=== PATIENT | female | born 1970 | race Caucasian/White ===

== ENCOUNTER 2017-01-04 17:50 | Emergency (ER) | payer MEDICAID ==
[~2017-01-04] VITALS: Ht 167.6 cm; Wt 60.0 kg
[2017-01-04 18:01] VITALS: BP 135/85
== END 2017-01-04 21:38 | disposition left against medical advice (07) ==
LOC: EMS 17:51
DX: M54.9 Dorsalgia, unspecified (principal); Z53.21 Procedure and treatment not carried out due to patient leaving prior to being seen by health care provider

== ENCOUNTER 2017-07-21 16:11 | Emergency (ER) | payer MEDICAID ==
[~2017-07-21] VITALS: Ht 170.2 cm; Wt 63.5 kg
[2017-07-21] MEDS ORDERED: IBUPROFEN 600 MG TABLET PO ONE (17:15)
[2017-07-21 17:43] VITALS: BP 114/89
== END 2017-07-21 18:24 | disposition home or self-care (01) ==
LOC: EMS 16:13
DX: G44.209 Tension-type headache, unspecified, not intractable (principal)
CPT/HCPCS: 99282

== ENCOUNTER 2018-06-20 22:01 | Emergency (ER) | payer MEDICAID ==
[~2018-06-20] VITALS: Ht 170.2 cm; Wt 63.6 kg
[2018-06-21 01:36] VITALS: BP 126/76
== END 2018-06-21 01:44 | disposition home or self-care (01) ==
LOC: EMS 22:02
DX: S09.90XA Unspecified injury of head, initial encounter (principal); F17.210 Nicotine dependence, cigarettes, uncomplicated; W22.09XA Striking against other stationary object, initial encounter; Y93.89 Activity, other specified; Y92.89 Other specified places as the place of occurrence of the external cause; Y99.8 Other external cause status
CPT/HCPCS: 99281

== ENCOUNTER 2018-06-23 15:27 | Emergency (ER) | payer MEDICAID ==
[~2018-06-23] VITALS: Ht 170.2 cm; Wt 63.6 kg
[2018-06-23 16:02] VITALS: BP 101/78
[2018-06-23] MEDS ORDERED: PredniSONE 20 MG TABLET PO ONE (16:15)
[2018-06-23] MEDS ORDERED: IBUPROFEN 800 MG TABLET PO ONE (16:15)
== END 2018-06-23 16:27 | disposition home or self-care (01) ==
LOC: EMS 15:32
DX: S60.862A Insect bite (nonvenomous) of left wrist, initial encounter (principal); L03.114 Cellulitis of left upper limb; F17.210 Nicotine dependence, cigarettes, uncomplicated; Z98.51 Tubal ligation status; W57.XXXA Bitten or stung by nonvenomous insect and other nonvenomous arthropods, initial encounter; Y93.89 Activity, other specified; Y92.89 Other specified places as the place of occurrence of the external cause; Y99.8 Other external cause status
CPT/HCPCS: 99283; J7512

== ENCOUNTER 2018-06-25 20:13 | Emergency (ER) | payer MEDICAID ==
[~2018-06-25] VITALS: Ht 170.2 cm; Wt 63.6 kg
[2018-06-25] MEDS ORDERED: SULFAMETHOX/TRIMETH DS 800-160 MG/TABLET PO ONE (21:30)
[2018-06-25] MEDS ORDERED: KETOROLAC TROMETHAMINE 30 MG/ML VIAL IM ONE (21:30)
[2018-06-25] MEDS ORDERED: CEPHALEXIN MONOHYDRATE 500 MG CAPSULE PO ONE (21:30)
[2018-06-25 21:33] LABS: BASOPHILS % (AUTO) 1.3 % (0.0-2.0); HEMATOCRIT 30.5 % (36-46); HEMOGLOBIN 10.3 g/dL (12.0-16.0); LYMPHOCYTES # (AUTO) 1.8 K/uL (1.0-4.8); LYMPHOCYTES % (AUTO) 19.4 % (22.0-44.0); MEAN CORPUSCULAR HEMOGLOBIN 28.7 pg (26.0-34.0); MEAN CORPUSCULAR HGB CONC 33.9 G/dL (31.0-37.0); MEAN CORPUSCULAR VOLUME 85 fL (80-100); MONOCYTES # (AUTO) 0.9 K/uL (0.1-1.0); MONOCYTES % (AUTO) 9.1 % (2.0-9.0); NEUTROPHILS # (AUTO) 6.5 K/uL (1.8-7.7); NEUTROPHILS % (AUTO) 69.2 % (40.0-70.0); PLATELET COUNT (AUTO) 383 K/uL (150-450); RED CELL DISTRIBUTION WIDTH 14.1 % (11.5-14.5)
[2018-06-25 21:43] LABS: ANION GAP 6 mmol/L (8-16); CALCIUM, TOTAL 8.6 mg/dL (8.8-10.5); CARBON DIOXIDE 29 mmol/L (22-29); CHLORIDE 104 mmol/L (98-107); CREATININE 0.74 mg/dL (0.60-1.30); GLOMERULAR FILTR. RATE CALC > 60 mL/min (>60); GLUCOSE,RANDOM 101 mg/dL (70-110); POTASSIUM 3.7 mmol/L (3.5-5.1); SODIUM SERUM 139 mmol/L (136-145); UREA NITROGEN, BLOOD 19 mg/dL (7-18)
[2018-06-25] MEDS ORDERED: LIDOCAINE/PF 1% 5 ML VIAL INJ ONE (21:45)
[2018-06-25 22:07] VITALS: BP 118/76
[2018-06-26] MEDS ORDERED: ANTIBIOTIC PO (14:47)
== END 2018-06-25 22:30 | disposition home or self-care (01) ==
LOC: EMS 20:14
DX: L02.414 Cutaneous abscess of left upper limb (principal); L03.114 Cellulitis of left upper limb; F17.210 Nicotine dependence, cigarettes, uncomplicated; Z98.51 Tubal ligation status
CPT/HCPCS: 10060; 36415; 80048; 85025; 96372; 99284; 99406; J1885; J3490

== ENCOUNTER 2018-06-26 14:43 | Emergency (ER) | payer MEDICAID ==
[~2018-06-26] VITALS: Ht 170.2 cm; Wt 63.5 kg
[2018-06-26 14:45] VITALS: BP 106/64
[2018-06-26] MEDS ORDERED: ANTIBIOTIC PO (14:47)
[2018-06-26] MEDS ORDERED: SULFAMETHOX/TRIMETH DS 800-160 MG/TABLET PO ONE (15:30)
[2018-06-26] MEDS ORDERED: CEPHALEXIN MONOHYDRATE 500 MG CAPSULE PO ONE (15:30)
== END 2018-06-26 15:38 | disposition home or self-care (01) ==
LOC: EMS 14:44
DX: L02.414 Cutaneous abscess of left upper limb (principal); F17.210 Nicotine dependence, cigarettes, uncomplicated
CPT/HCPCS: 99283

== ENCOUNTER 2018-06-27 17:28 | Emergency (ER) | payer MEDICAID ==
[~2018-06-27] VITALS: Ht 170.2 cm; Wt 63.6 kg
[~2018-06-27 17:28] MED LIST: ANTIBIOTIC PO
[2018-06-27] MEDS ORDERED: IBUPROFEN 800 MG TABLET PO ONE (19:15)
[2018-06-27 19:23] VITALS: BP 110/79
== END 2018-06-27 19:24 | disposition home or self-care (01) ==
LOC: EMS 17:29
DX: L02.413 Cutaneous abscess of right upper limb (principal); F17.210 Nicotine dependence, cigarettes, uncomplicated; Z48.00 Encounter for change or removal of nonsurgical wound dressing; Z98.51 Tubal ligation status
CPT/HCPCS: 99283

== ENCOUNTER 2019-09-10 05:43 | Emergency (ER) | payer MEDICAID ==
[~2019-09-10] VITALS: Ht 170.2 cm; Wt 61.4 kg
[2019-09-10 05:48] VITALS: BP 104/79
== END 2019-09-10 08:16 | disposition left against medical advice (07) ==
LOC: EMS 05:43
DX: S60.361A Insect bite (nonvenomous) of right thumb, initial encounter (principal); Z53.21 Procedure and treatment not carried out due to patient leaving prior to being seen by health care provider; W57.XXXA Bitten or stung by nonvenomous insect and other nonvenomous arthropods, initial encounter; Y93.89 Activity, other specified; Y92.89 Other specified places as the place of occurrence of the external cause; Y99.8 Other external cause status

== ENCOUNTER 2020-04-08 19:25 | Emergency (ER) | payer SELFPAY ==
[~2020-04-08] VITALS: Ht 167.6 cm; Wt 65.9 kg
[2020-04-08 22:09] VITALS: BP 127/77
[2020-04-08] MEDS ORDERED: IBUPROFEN 600 MG TABLET PO ONE (23:30)
== END 2020-04-08 23:47 | disposition home or self-care (01) ==
LOC: EMS 19:25
DX: S92.122A Displaced fracture of body of left talus, initial encounter for closed fracture (principal); F17.210 Nicotine dependence, cigarettes, uncomplicated; V00.131A Fall from skateboard, initial encounter; Y93.51 Activity, roller skating (inline) and skateboarding; Y92.89 Other specified places as the place of occurrence of the external cause; Y99.8 Other external cause status
CPT/HCPCS: 99406

== ENCOUNTER 2020-12-06 21:43 | Emergency (ER) | payer MEDICAID, OTHER ==
[~2020-12-06] VITALS: Ht 165.1 cm; Wt 72.7 kg
[2020-12-06] MEDS ORDERED: ACETAMINOPHEN 500 MG TABLET PO ONE (23:15)
[2020-12-06] MEDS ORDERED: ASPIRIN 81 MG CHEWABLE TABLET PO ONE (23:15)
[2020-12-07] LABS: BASOPHILS % (AUTO) 1.5 % (0.0-2.0); EOSINOPHILS % (AUTO) 1.5 % (1.0-6.0); HEMATOCRIT 39.1 % (36-46); HEMOGLOBIN 12.5 g/dL (12.0-16.0); LYMPHOCYTES # (AUTO) 1.9 K/uL (1.0-4.8); LYMPHOCYTES % (AUTO) 42.7 % (22.0-44.0); MEAN CORPUSCULAR HEMOGLOBIN 27.9 pg (26.0-34.0); MEAN CORPUSCULAR HGB CONC 32.1 G/dL (31.0-37.0); MEAN CORPUSCULAR VOLUME 87 fL (80-100); MONOCYTES # (AUTO) 0.5 K/uL (0.1-1.0); NEUTROPHILS # (AUTO) 1.9 K/uL (1.8-7.7); NEUTROPHILS % (AUTO) 43.3 % (40.0-70.0); PLATELET COUNT (AUTO) 338 K/uL (150-450); RED BLOOD CELL COUNT(AUTO) 4.49 MIL/uL (4.00-5.20); RED CELL DISTRIBUTION WIDTH 15.3 % (11.5-14.5)
[2020-12-07 00:17] LABS: ANION GAP 9 mmol/L (8-16); CALCIUM, TOTAL 9.1 mg/dL (8.8-10.5); CARBON DIOXIDE 25 mmol/L (22-29); CHLORIDE 107 mmol/L (98-107); CREATININE 0.67 mg/dL (0.60-1.30); GLOMERULAR FILTR. RATE CALC > 60 mL/min (>60); GLUCOSE,RANDOM 90 mg/dL (70-110); POTASSIUM 4.2 mmol/L (3.5-5.1); SODIUM SERUM 141 mmol/L (136-145); UREA NITROGEN, BLOOD 24 mg/dL (7-18)
[2020-12-07 00:31] LABS: PROTHROMBIN TIME 10.9 SEC (9.4-11.6)
[2020-12-07 00:40] LABS: ALANINE AMINOTRANSFERASE 37 U/L (12-78); ALBUMIN 3.6 g/dL (3.4-5.0); ALKALINE PHOSPHATASE 87 U/L (46-116); ASPARTATE AMINOTRANSFERASE 31 U/L (15-37); BILIRUBIN,TOTAL 0.2 mg/dL (0.1-1.0); CREATINE KINASE, TOTAL ONLY 87 U/L (26-192); HCG,QUANTITATIVE 1 mIU/mL (0-6); TOTAL PROTEIN, SERUM 7.7 g/dL (6.4-8.2)
[2020-12-07 00:57] LABS: B-TYPE NATRIURETIC PEPTIDE 9 pg/mL (0-100)
[2020-12-07 01:10] VITALS: BP 117/77
== END 2020-12-07 01:26 | disposition home or self-care (01) ==
LOC: EMS 21:43
DX: R07.9 Chest pain, unspecified (principal); F17.210 Nicotine dependence, cigarettes, uncomplicated
CPT/HCPCS: 93005; 99285; 36415-L1; 36415-TC; 71045-TC

== ENCOUNTER 2021-03-23 14:06 | Emergency (ER) | payer OTHER ==
[~2021-03-23] VITALS: Ht 170.2 cm; Wt 63.6 kg
[2021-03-23 14:10] VITALS: BP 139/73
== END 2021-03-23 14:39 | disposition home or self-care (01) ==
LOC: EMS 14:08
DX: H00.011 Hordeolum externum right upper eyelid (principal)
CPT/HCPCS: 99283

== ENCOUNTER 2021-04-04 04:39 | Emergency (ER) | payer OTHER ==
[~2021-04-04] VITALS: Ht 170.2 cm; Wt 63.6 kg
[2021-04-04 07:00] VITALS: BP 119/77
== END 2021-04-04 07:44 | disposition home or self-care (01) ==
LOC: EMS 04:39
DX: S80.12XA Contusion of left lower leg, initial encounter (principal); F17.210 Nicotine dependence, cigarettes, uncomplicated; F12.90 Cannabis use, unspecified, uncomplicated; W19.XXXA Unspecified fall, initial encounter; Y93.89 Activity, other specified; Y92.89 Other specified places as the place of occurrence of the external cause; Y99.8 Other external cause status
CPT/HCPCS: 99284

== ENCOUNTER 2021-07-02 22:25 | Emergency (ER) | payer OTHER ==
[~2021-07-02] VITALS: Ht 170.2 cm; Wt 66.0 kg
[2021-07-02 22:28] VITALS: BP 110/64
== END 2021-07-02 23:15 | disposition left against medical advice (07) ==
LOC: EMS 22:26
DX: M54.50 Low back pain, unspecified (principal); Z53.21 Procedure and treatment not carried out due to patient leaving prior to being seen by health care provider

== ENCOUNTER 2021-07-12 19:47 | Emergency (ER) | payer OTHER ==
[~2021-07-12] VITALS: Ht 170.2 cm; Wt 65.9 kg
[2021-07-12 19:52] VITALS: BP 114/73
== END 2021-07-12 21:20 | disposition left against medical advice (07) ==
LOC: EMS 19:50
DX: M54.50 Low back pain, unspecified (principal); Z53.21 Procedure and treatment not carried out due to patient leaving prior to being seen by health care provider

== ENCOUNTER 2022-03-03 21:38 | Emergency (ER) | payer OTHER ==
[~2022-03-03] VITALS: Ht 175.3 cm; Wt 63.6 kg
[2022-03-03 22:28] VITALS: BP 138/90
== END 2022-03-04 02:03 | disposition home or self-care (01) ==
LOC: EMS 22:05
DX: M79.604 Pain in right leg (principal); F12.90 Cannabis use, unspecified, uncomplicated; F17.210 Nicotine dependence, cigarettes, uncomplicated
CPT/HCPCS: 99283

== ENCOUNTER 2022-05-10 13:32 | Emergency (ER) | payer OTHER ==
[~2022-05-10] VITALS: Ht 170.2 cm; Wt 63.6 kg
[2022-05-10] MEDS ORDERED: IBUP-2280 PO (16:29)
[2022-05-10] MEDS ORDERED: IBUPROFEN 800 MG TABLET PO ONE (16:30)
[2022-05-10 16:39] VITALS: BP 127/74
== END 2022-05-10 16:40 | disposition home or self-care (01) ==
LOC: EMS 13:32
DX: S90.31XA Contusion of right foot, initial encounter (principal); F17.210 Nicotine dependence, cigarettes, uncomplicated; F12.90 Cannabis use, unspecified, uncomplicated; Z86.19 Personal history of other infectious and parasitic diseases; Z98.51 Tubal ligation status; Z98.890 Other specified postprocedural states; X58.XXXA Exposure to other specified factors, initial encounter; Y93.89 Activity, other specified; Y92.89 Other specified places as the place of occurrence of the external cause; Y99.8 Other external cause status
CPT/HCPCS: 99283

== ENCOUNTER 2023-07-18 21:08 | Emergency (ER) | payer OTHER ==
[~2023-07-18] VITALS: Ht 170.2 cm; Wt 65.9 kg
[~2023-07-18 21:08] MED LIST changes: -ANTIBIOTIC PO; +IBUP-2280 PO
[2023-07-18 21:11] VITALS: BP 135/77; PULSE 102; RESP 16; TEMP 98
[2023-07-18] MEDS ORDERED: MELO-381 PO (22:32)
[2023-07-18] MEDS ORDERED: BACTDSB PO (22:32)
[2023-07-18] MEDS ORDERED: MELOXICAM 7.5 MG TABLET PO ONE (22:45)
[2023-07-18] MEDS ORDERED: SULFAMETHOX/TRIMETH DS 800-160 MG/TABLET PO ONE (22:45)
== END 2023-07-18 23:03 | disposition home or self-care (01) ==
LOC: EMS 21:08
DX: M19.042 Primary osteoarthritis, left hand (principal); M79.645 Pain in left finger(s); F17.210 Nicotine dependence, cigarettes, uncomplicated; F12.90 Cannabis use, unspecified, uncomplicated; Z98.51 Tubal ligation status
CPT/HCPCS: 99283

== ENCOUNTER 2024-01-08 11:34 | Emergency (ER) | payer OTHER ==
[~2024-01-08] VITALS: Ht 170.2 cm; Wt 61.4 kg
[~2024-01-08 11:34] MED LIST changes: +BACTDSB PO; -IBUP-2280 PO; +MELO-107 PO
[2024-01-08 11:40] VITALS: TEMP 98.5
[2024-01-08] MEDS: KETOROLAC TROMETHAMINE 30 MG/ML VIAL IM ONE (14:33)
[2024-01-08] MEDS ORDERED: ACET-784 PO (14:49)
[2024-01-08] MEDS ORDERED: IBUP-1492 PO (14:49)
[2024-01-08 15:15] VITALS: BP 115/70; PULSE 72; RESP 14
== END 2024-01-08 15:26 | disposition home or self-care (01) ==
LOC: EMS 11:35
DX: M54.12 Radiculopathy, cervical region (principal); M65.20 Calcific tendinitis, unspecified site; F17.210 Nicotine dependence, cigarettes, uncomplicated; F12.90 Cannabis use, unspecified, uncomplicated; Z98.51 Tubal ligation status
CPT/HCPCS: 99283; 73030; 96372; J1885

== ENCOUNTER 2024-04-14 01:36 | Emergency (ER) | payer OTHER ==
[~2024-04-14] VITALS: Ht 167.6 cm; Wt 61.4 kg
[~2024-04-14 01:36] MED LIST changes: +ACET-784 PO; -BACTDSB PO; +IBUP-1492 PO; -MELO-107 PO
[2024-04-14 01:39] VITALS: BP 106/57; PULSE 110; RESP 18; TEMP 98
[2024-04-14] MEDS ORDERED: CEPH-558 PO (02:17)
[2024-04-14] MEDS ORDERED: HYDR-4062 PO (02:17)
[2024-04-14] MEDS ORDERED: IBUP-1554 PO (02:17)
[2024-04-14] MEDS ORDERED: DIPH50CA37 PO (02:17)
[2024-04-14] MEDS ORDERED: DOXY-354 PO (02:17)
[2024-04-14] MEDS: IBUPROFEN 600 MG TABLET PO ONE (02:26)
[2024-04-14] MEDS: CEPHALEXIN MONOHYDRATE 500 MG CAPSULE PO ONE (02:26)
[2024-04-14] MEDS: HYDROCODONE/ACETAMINOPHEN 5-325 MG TABLET PO ONE (02:27)
[2024-04-14] MEDS: PERTUSS(ACELL),DIPH,TET/PF 0.5 ML SYRINGE [ADULT] IM. ONE (02:28)
== END 2024-04-14 02:37 | disposition home or self-care (01) ==
LOC: EMS 01:36
DX: L03.116 Cellulitis of left lower limb (principal); F17.210 Nicotine dependence, cigarettes, uncomplicated; F12.90 Cannabis use, unspecified, uncomplicated; Z98.51 Tubal ligation status; Z98.890 Other specified postprocedural states
CPT/HCPCS: 90471; 90715; 99284